=== PATIENT | female | born 1980 | race African-American/Black ===

== ENCOUNTER 2018-01-14 18:59 | Emergency (ER) | payer MEDICAID ==
[~2018-01-14] VITALS: Ht 157.5 cm; Wt 62.6 kg
[2018-01-14 19:15] VITALS: BP 139/86
--- NOTE | 2018-01-14 20:37 | Diagnostic Imaging Report ---
History: CP Exam: XR CXR 1 VIEW Comparison: None available FINDINGS: The lungs are clear. The cardiac and mediastinal contours are within limits. The visualized osseous structures appear within limits. IMPRESSION: No evidence of acute disease.
[2018-01-14 20:57] LABS: EOSINOPHILS % (AUTO) 1.6 % (0.0-3.0); HEMATOCRIT 36.1 % (37.0-47.0); HEMOGLOBIN 12.1 G/DL (12.0-16.0); LYMPHOCYTES % (AUTO) 41.6 % (20.0-45.0); MEAN CORPUSCULAR VOLUME 92 FL (80-99); MONOCYTES % (AUTO) 5.9 % (1.0-10.0); PLATELET COUNT 227 K/UL (150-450); RED BLOOD COUNT 3.91 M/UL (4.20-5.40); RED CELL DISTRIBUTION WIDTH 12.3 % (11.6-14.8); WHITE BLOOD COUNT 4.9 K/UL (4.8-10.8)
[2018-01-14 21:13] LABS: ANION GAP 11 mmol/L (5-15); BLOOD UREA NITROGEN 7 mg/dL (7-18); CALCIUM 9.2 MG/DL (8.5-10.1); CARBON DIOXIDE 27 MMOL/L (21-32); CHLORIDE 105 MMOL/L (98-107); CREATININE 0.9 MG/DL (0.55-1.30); POTASSIUM 3.6 MMOL/L (3.5-5.1); SODIUM 143 MMOL/L (136-145)
--- NOTE | 2018-01-14 21:21 | Emergency Room Report ---
History of Present Illness General Chief Complaint: Chest Pain Source: Patient (Angelito Fernandez MD) Present Illness HPI 37-year-old female presents ED for evaluation. States that she's been having cough and chest pain for the last 2 weeks. Was seen at another emergency room last week and was told she had "CHF" and was told to be admitted. Patient decided to leave and left AMA. Patient states the chest pain has continued since. Denies any prior history of cardiac disease or CHF. Denies fevers or chills. Denies any leg swelling. Denies any shortness of breath. No other aggravating or relieving factors. Denies any other associated symptoms (Angelito Fernandez MD) Allergies: Coded Allergies: No Known Allergies (Unverified , 01/14/18) Patient History Past Medical History: asthma Past Surgical History: none Pertinent Family History: none Social History: Denies: smoking, alcohol use, drug use Now: No Immunizations: UTD Reviewed Nursing Documentation: PMH: Agreed; PSxH: Agreed (Angelito Fernandez MD) Nursing Documentation-PMH Past Medical History: No History, Except For Hx Asthma: Yes Hx Seizures: Yes (Angelito Fernandez MD) Review of Systems All Other Systems: negative except mentioned in HPI (Angelito Fernandez MD) Physical Exam Vital Signs Date Time Temp Pulse Resp B/P (MAP) Pulse Ox O2 Delivery O2 Flow Rate FiO2 01/14/18 19:04 98.1 67 18 130/88 97 Room Air 98.1 Sp02 EP Interpretation: reviewed, normal General Appearance: no apparent distress, alert, GCS 15, non-toxic Head: normocephalic, atraumatic Eyes: bilateral eye normal inspection, bilateral eye PERRL ENT: hearing grossly normal, normal pharynx, no angioedema, normal voice Neck: full range of motion, supple/symm/no masses Respiratory: chest non-tender, lungs clear, normal breath sounds, speaking full sentences Cardiovascular #1: regular rate, rhythm, no edema Cardiovascular #2: 2+ carotid (R), 2+ carotid (L), 2+ radial (R), 2+ radial (L) , 2+ dorsalis pedis (R), 2+ dorsalis pedis (L) Gastrointestinal: normal bowel sounds, non tender, soft, non-distended, no guarding, no rebound Rectal: deferred Genitourinary: normal inspection, no CVA tenderness Musculoskeletal: back normal, gait/station normal, normal range of motion, non- tender Neurologic: alert, oriented x3, responsive, motor strength/tone normal, sensory intact, speech normal Psychiatric: judgement/insight normal, memory normal, mood/affect normal, no suicidal/homicidal ideation Reflexes: 3+ bicep (R), 3+ bicep (L), 3+ tricep (R), 3+ tricep (L), 3+ knee (R) , 3+ knee (L) Skin: normal color, no rash, warm/dry, well hydrated Lymphatic: no adenopathy (Angelito Fernandez MD) Medical Decision Making Diagnostic Impression: Primary Impression: Chest pain Qualified Codes: R07.9 - Chest pain, unspecified ER Course Patient signout to me. She presents with chief complaint of chest pain ongoing for 2 weeks straight. Labs unremarkable. D-dimer was elevated so CT scan was done. CT scan unremarkable. No evidence of ACS, PE, dissection to name a few. This patient is sleeping without any evidence of any distress since she's been here. (TONIO CARPENTER M.D.) EKG Diagnostic Results Rate: normal Rhythm: NSR ST Segments: no acute changes ASA given to the pt in ED: No (Angelito Fernandez MD) Rhythm Strip Diag. Results EP Interpretation: yes Rhythm: NSR, no PVC's, no ectopy (Angelito Fernandez MD) Chest X-Ray Diagnostic Results Chest X-Ray Diagnostic Results : Chest X-Ray Ordered: Yes # of Views/Limited/Complete: 1 View Indication: Chest Pain EP Interpretation: Yes Interpretation: no consolidation, no effusion, no pneumothorax, no acute cardiopulmonary disease Impression: No acute disease Electronically Signed by: Electronically signed by Angelito Fernandez MD (Angelito Fernandez MD) CT/MRI/US Diagnostic Results CT/MRI/US Diagnostic Results : Imaging Test Ordered: CT chest Impression read by radiologist. negative. (TONIO CARPENTER M.D.) Last Vital Signs Date Time Temp Pulse Resp B/P (MAP) Pulse Ox O2 Delivery O2 Flow Rate FiO2 01/14/18 19:15 100 17 Room Air 01/14/18 19:15 139/86 99 01/14/18 19:04 98.1 98.1 (Angelito Fernandez MD) Status: improved (TONIO CARPENTER M.D.) Disposition: HOME, SELF-CARE Condition: Stable Referrals: NON PHYSICIAN (PCP) Patient Instructions: Nonspecific Chest Pain Additional Instructions: Follow-up with your doctor in 7 days. Return if symptom worsen. Angelito Fernandez MD January 14, 2018 21:21 TONIO CARPENTER M.D. January 14, 2018 23:28
[2018-01-14 21:26] LABS: ALANINE AMINOTRANSFERASE 39 U/L (12-78); ALBUMIN 3.5 G/DL (3.4-5.0); ALBUMIN/GLOBULIN RATIO 0.9 (1.0-2.7); ALKALINE PHOSPHATASE 108 U/L (46-116); ASPARTATE AMINO TRANSFERASE 33 U/L (15-37); BILIRUBIN,TOTAL 0.3 MG/DL (0.2-1.0); CKMB 2.1 NG/ML (0.0-3.6); CREATINE KINASE 756 U/L (26-308)
[2018-01-14] MEDS ORDERED: Isovue-370 150ml vial INJ PRN (21:30)
[2018-01-14 22:30] VITALS: BP 125/79
--- NOTE | 2018-01-14 23:25 | Diagnostic Imaging Report ---
History: SOB Exam: CTA CHEST With Contrast Technique more: CTDI is 17.93 mGy and DLP is 548 mGy-cm. Technique more: One or more of the following dose reduction techniques were used: automated exposure control, adjustment of the mA and/or kV according to patient size, use of iterative reconstruction technique. Comparison: FINDINGS: Respiratory motion artifact limits the evaluation. No evidence of filling defect to suggest pulmonary embolism with limited evaluation of the segmental and subsegmental arteries. Thoracic aorta and visualized great vessels appear within limits. No pericardial or pleural effusion. The central airways are patent without focal consolidation. No lymphadenopathy. Shotty bilateral axillary nodes. IMPRESSION: Respiratory motion artifact limits the evaluation. No evidence of filling defect to suggest pulmonary embolism with limited evaluation of the segmental and subsegmental arteries.
[2018-01-15] VITALS: BP 104/74
[2018-01-15 00:10] VITALS: BP 104/74
--- NOTE | 2018-01-18 14:47 | Cardiology Report ---
APPROVED REPORT EKG Measurement Heart [id number] Normal sinus rhythm Normal ECG
== END 2018-01-15 00:10 | disposition home or self-care (01) ==
LOC: EMR 19:27
DX: R07.9 Chest pain, unspecified (principal); J45.909 Unspecified asthma, uncomplicated
CPT/HCPCS: 36415; 71045; 71275; 80053; 80307; 82550; 82553; 83880; 84484; 84703; 85025; 85379; 93005; 99284; Q9967